=== PATIENT | female | born 1930 | race Caucasian/White ===

== ENCOUNTER 2017-03-12 07:21 | Day surgery (SDC) | payer MEDICARE, OTHER ==
[~2017-03-12 07:21] MED LIST: Acetaminophen TAB* 325 MG PO PRN; Buffered Lidocaine 1% SYRIN* 3 ML/SYR SYRINGE INTRADERM ONE
[2017-03-12] MEDS ORDERED: Midazolam* 1 MG/ML 5 ML VIAL (5 MG) ONE (07:35)
[2017-03-12 10:02] VITALS: BP 155/95
[2017-03-12] MEDS ORDERED: Phenylephrine 2.5% OPTH.SOL* 2 ML BTL ONE (13:39)
[2017-03-12] MEDS ORDERED: Lidocaine 1% MPF* 2 ML VIAL ONE (13:39)
[2017-03-12] MEDS ORDERED: acetaZOLAMIDE TAB* 250 MG ONE (13:39)
[2017-03-12] MEDS ORDERED: Povidone Iodine 5% OPTH* 30 ML BTL ONE (13:39)
[2017-03-12] MEDS ORDERED: Lidocaine 2% EPI 1:200000 MPF* 20 ML VIAL ONE (13:39)
[2017-03-12] MEDS ORDERED: Flurbiprofen 0.03% OPTH.SOL* 2.5 ML BTL ONE (13:39)
[2017-03-12] MEDS ORDERED: Cyclopentolate 1% OPTH.SOL* 2 ML BTL ONE (13:39)
[2017-03-12] MEDS ORDERED: Neomycin/Polymy/Dex OPTH.SUSP* MAXITROL 0.1% 5 ML ONE (13:39)
[2017-03-12] MEDS ORDERED: Proparacaine 0.5% OPHTH.SOL* 15 ML BTL ONE (13:39)
--- NOTE | 2017-03-12 23:38 | OP ---
DATE OF OPERATION: 03/12/17 - [facility] DATE OF : 32 SURGEON: Ricky Pryor M.D. PREOPERATIVE DIAGNOSIS: Cataract, left eye. POSTOPERATIVE DIAGNOSIS: Cataract, left eye. OPERATIVE PROCEDURE: Phacoemulsification, left eye with IOL. DESCRIPTION OF PROCEDURE: The patient was brought to the operating room after being given 1/2% Alcaine with epinephrine drops in the preoperative area. The eye was prepped and draped in the usual sterile fashion. Sterile drape and eyelid speculum were placed. Again, topical 1/2% Alcaine with epinephrine was given. A paracentesis incision was made at the 3 o'clock position with the No.75 blade. Clear cornea incision 2.2 x 2.2-mm was created at the 6 o'clock position starting at the anterior limbus using the 2.2-mm keratome. The anterior chamber was irrigated with 0.4 mL of 1% non-preservative intracameral lidocaine and filled with DisCoVisc. A capsulorrhexis was completed using the cystotome and the Utrata forceps. Hydrodissection was performed with balanced salt solution. The lens nucleus was removed with the Phacoemulsification handpiece without incident. Cortex was removed with the irrigation-aspiration handpiece. The capsular bag was re-inflated using DisCoVisc and an [id number] implant was inserted with the shooter. The irrigation-aspiration handpiece was used to remove all residual DisCoVisc. The eye was refilled with balanced salt solution and the wound checked and found to be watertight. Topical Maxitrol drops were given. [id number]/[facility] #: [id number] [facility]
== END 2017-03-12 10:13 | disposition home or self-care (01) ==
LOC: OREAST 07:21
PROVIDERS: ATTEND Specialist
DX: H25.812 Combined forms of age-related cataract, left eye (principal); H35.3132 Nonexudative age-related macular degeneration, bilateral, intermediate dry stage; G20 Parkinson's disease
CPT/HCPCS: A9270-GY; J2250; V2632

== ENCOUNTER 2020-05-12 09:00 | Inpatient (IN) ==
[2020-05-12] MEDS ORDERED: Al Hydrox/Mg Hydrox/Simet LIQ 30 ML UDC PO PRN (11:53)
[2020-05-12] MEDS: Enoxaparin 30 MG/0.3 ML SYR(*) SUBCUT SCH (13:54)
[2020-05-12] MEDS: Carbidopa/Levodop 10/100 MG TAB(*) PO SCH ×2 (13:54→22:01)
[2020-05-13] MEDS: Carbidopa/Levodop 10/100 MG TAB(*) PO SCH ×3 (08:16→20:21)
[2020-05-13 08:39] LABS: ABS Eosinophils 0.1 10^3/ul (0-0.6); ABS Lymphocytes 0.9 10^3/ul (1.0-4.8); ABS Monocytes 0.4 10^3/ul (0-0.8); Eosinophil % 2.5 %; Hematocrit 41 % (35-47); Hemoglobin 13.6 g/dL (12.0-16.0); Lymphocyte % 17.2 %; Mean Corpuscular HGB Conc 34 g/dL (31-36); Mean Corpuscular Hemoglobin 31 pg (27-31); Mean Corpuscular Volume 92 fL (80-97); Mean Platelet Volume 9.1 fL (7.4-10.4); Nucleated Red Blood Cells % 0.1; Platelet Count 199 10^3/uL (150-450); Red Blood Count 4.42 10^6 /uL (3.70-4.87); Red Cell Distribution Width 13 % (10-15)
[2020-05-13] MEDS: Lidocaine PATCH 5% PATCH TRANSDERM SCH (09:01)
[2020-05-13 09:13] LABS: Albumin 3.6 g/dL (3.2-5.2); Albumin/Globulin Ratio 1.1 (1-3); BUN/Creatinine Ratio 15.4 (8-20); Calcium 9.2 mg/dL (8.6-10.3); EGFR African American 49.9 (>60); EGFR Non-African American 41.2 (>60); Globulin 3.3 g/dL (2-4); Potassium 4.1 mmol/L (3.5-5.0); Total Bilirubin 0.6 mg/dL (0.2-1.0); Total Protein 6.9 g/dL (6.4-8.9)
[2020-05-13] MEDS ORDERED: Mineral Oil ENEMA 118 ML/BOTTLE BOTTLE PR PRN (09:52)
[2020-05-13] MEDS ORDERED: Sodium Phosphate ADULT ENEMA 133 ML BTL PR PRN (09:52)
[2020-05-13] MEDS: Enoxaparin 30 MG/0.3 ML SYR(*) SUBCUT SCH (12:56)
[2020-05-13] MEDS: Magnesium Hydroxide LIQ 30 ML UDC PO PRN (19:14)
[2020-05-13] MEDS: Lidocaine Patch REMOVE PATCH PATCH OFF SCH (21:45)
[2020-05-14] MEDS: Lidocaine PATCH 5% PATCH TRANSDERM SCH (09:23)
[2020-05-14] MEDS: Carbidopa/Levodop 10/100 MG TAB(*) PO SCH ×3 (09:23→20:02)
[2020-05-14] MEDS: Polyethylene Glycol 3350 17 GM PACKET PO SCH (09:23)
[2020-05-14] MEDS: Magnesium Hydroxide LIQ 30 ML UDC PO PRN (09:27)
[2020-05-14] MEDS: Enoxaparin 30 MG/0.3 ML SYR(*) SUBCUT SCH (13:42)
[2020-05-14] MEDS: Senna TAB 8.6 mg TAB PO PRN (20:02)
[2020-05-14] MEDS: Lidocaine Patch REMOVE PATCH PATCH OFF SCH (20:44)
[2020-05-15] MEDS: Polyethylene Glycol 3350 17 GM PACKET PO SCH (08:06)
[2020-05-15] MEDS: Carbidopa/Levodop 10/100 MG TAB(*) PO SCH ×3 (08:06→20:40)
[2020-05-15] MEDS: Lidocaine PATCH 5% PATCH TRANSDERM SCH (08:23)
[2020-05-15] MEDS: Enoxaparin 30 MG/0.3 ML SYR(*) SUBCUT SCH (12:37)
[2020-05-15] MEDS: Lidocaine Patch REMOVE PATCH PATCH OFF SCH (20:41)
[2020-05-16] MEDS: Carbidopa/Levodop 10/100 MG TAB(*) PO SCH ×3 (11:20→20:06)
[2020-05-16] MEDS: Lidocaine PATCH 5% PATCH TRANSDERM SCH (11:20)
[2020-05-16] MEDS: Polyethylene Glycol 3350 17 GM PACKET PO SCH (11:20)
[2020-05-16] MEDS: Enoxaparin 30 MG/0.3 ML SYR(*) SUBCUT SCH (11:21)
[2020-05-16] MEDS: Lidocaine Patch REMOVE PATCH PATCH OFF SCH (20:05)
[2020-05-17 05:48] LABS: ABS Eosinophils 0.1 10^3/ul (0-0.6); ABS Monocytes 0.6 10^3/ul (0-0.8); Eosinophil % 1.4 %; Hematocrit 40 % (35-47); Hemoglobin 13.6 g/dL (12.0-16.0); Lymphocyte % 15.2 %; Mean Corpuscular HGB Conc 34 g/dL (31-36); Mean Corpuscular Hemoglobin 31 pg (27-31); Mean Corpuscular Volume 92 fL (80-97); Mean Platelet Volume 8.5 fL (7.4-10.4); Nucleated Red Blood Cells % 0.1; Platelet Count 238 10^3/uL (150-450); Red Blood Count 4.39 10^6 /uL (3.70-4.87); Red Cell Distribution Width 13 % (10-15); White Blood Count 6.5 10^3/uL (3.5-10.8)
[2020-05-17 08:24] LABS: Albumin 3.6 g/dL (3.2-5.2); Calcium 8.8 mg/dL (8.6-10.3); Potassium 4.5 mmol/L (3.5-5.0); Total Bilirubin 0.4 mg/dL (0.2-1.0)
[2020-05-17 08:30] LABS: Albumin/Globulin Ratio 1.2 (1-3); BUN/Creatinine Ratio 17.8 (8-20); EGFR African American 44.8 (>60); Total Protein 6.6 g/dL (6.4-8.9)
[2020-05-17] MEDS: Polyethylene Glycol 3350 17 GM PACKET PO SCH (08:55)
[2020-05-17] MEDS: Carbidopa/Levodop 10/100 MG TAB(*) PO SCH ×3 (08:55→20:00)
[2020-05-17] MEDS: Lidocaine PATCH 5% PATCH TRANSDERM SCH (08:55)
[2020-05-17] MEDS: Enoxaparin 30 MG/0.3 ML SYR(*) SUBCUT SCH (13:36)
[2020-05-17] MEDS: Lidocaine Patch REMOVE PATCH PATCH OFF SCH (21:17)
[2020-05-18] MEDS: Lidocaine PATCH 5% PATCH TRANSDERM SCH (07:36)
[2020-05-18] MEDS: Polyethylene Glycol 3350 17 GM PACKET PO SCH (07:37)
[2020-05-18] MEDS: Carbidopa/Levodop 10/100 MG TAB(*) PO SCH ×3 (07:37→20:54)
[2020-05-18] MEDS: Enoxaparin 30 MG/0.3 ML SYR(*) SUBCUT SCH (13:06)
[2020-05-18] MEDS: Lidocaine Patch REMOVE PATCH PATCH OFF SCH (21:01)
[2020-05-19] MEDS: Lidocaine PATCH 5% PATCH TRANSDERM SCH (10:09)
[2020-05-19] MEDS: Carbidopa/Levodop 10/100 MG TAB(*) PO SCH ×3 (10:09→21:12)
[2020-05-19] MEDS: Polyethylene Glycol 3350 17 GM PACKET PO SCH (10:09)
[2020-05-19] MEDS: Enoxaparin 30 MG/0.3 ML SYR(*) SUBCUT SCH (11:45)
[2020-05-19] MEDS ORDERED: LORazepam 0.5 mg TAB (*) PO PRN (19:23)
[2020-05-19] MEDS: Lidocaine Patch REMOVE PATCH PATCH OFF SCH (21:15)
[2020-05-20] MEDS: Enoxaparin 30 MG/0.3 ML SYR(*) SUBCUT SCH (01:24)
[2020-05-20] MEDS: Lidocaine PATCH 5% PATCH TRANSDERM SCH (08:54)
[2020-05-20] MEDS: Carbidopa/Levodop 10/100 MG TAB(*) PO SCH ×3 (08:54→21:06)
[2020-05-20] MEDS: Polyethylene Glycol 3350 17 GM PACKET PO SCH (08:54)
[2020-05-20] MEDS: Lidocaine Patch REMOVE PATCH PATCH OFF SCH (21:45)
[2020-05-21] MEDS: Carbidopa/Levodop 10/100 MG TAB(*) PO SCH ×3 (08:21→21:29)
[2020-05-21] MEDS: Polyethylene Glycol 3350 17 GM PACKET PO SCH (08:22)
[2020-05-21] MEDS: Lidocaine PATCH 5% PATCH TRANSDERM SCH (08:22)
[2020-05-21] MEDS: Enoxaparin 30 MG/0.3 ML SYR(*) SUBCUT SCH (12:39)
[2020-05-21] MEDS: Lidocaine Patch REMOVE PATCH PATCH OFF SCH (21:29)
[2020-05-22] MEDS: Lidocaine PATCH 5% PATCH TRANSDERM SCH (08:37)
[2020-05-22] MEDS: Carbidopa/Levodop 10/100 MG TAB(*) PO SCH ×3 (08:37→20:47)
[2020-05-22] MEDS: Polyethylene Glycol 3350 17 GM PACKET PO SCH (08:38)
[2020-05-22] MEDS: Enoxaparin 30 MG/0.3 ML SYR(*) SUBCUT SCH (12:45)
[2020-05-22] MEDS: Senna TAB 8.6 mg TAB PO PRN (20:47)
[2020-05-22] MEDS: Lidocaine Patch REMOVE PATCH PATCH OFF SCH (20:55)
[2020-05-23] MEDS: Carbidopa/Levodop 10/100 MG TAB(*) PO SCH ×3 (09:16→20:12)
[2020-05-23] MEDS: Polyethylene Glycol 3350 17 GM PACKET PO SCH (09:16)
[2020-05-23] MEDS: Lidocaine PATCH 5% PATCH TRANSDERM SCH (09:17)
[2020-05-23] MEDS: Enoxaparin 30 MG/0.3 ML SYR(*) SUBCUT SCH (12:11)
[2020-05-23] MEDS: Senna TAB 8.6 mg TAB PO PRN (20:13)
[2020-05-23] MEDS: Lidocaine Patch REMOVE PATCH PATCH OFF SCH (20:17)
[2020-05-24 07:07] LABS: ABS Eosinophils 0.1 10^3/ul (0-0.6); ABS Lymphocytes 1.2 10^3/ul (1.0-4.8); ABS Monocytes 0.6 10^3/ul (0-0.8); Eosinophil % 1.4 %; Hematocrit 39 % (35-47); Hemoglobin 13.4 g/dL (12.0-16.0); Lymphocyte % 23.4 %; Mean Corpuscular HGB Conc 34 g/dL (31-36); Mean Corpuscular Hemoglobin 32 pg (27-31); Mean Corpuscular Volume 93 fL (80-97); Mean Platelet Volume 8.7 fL (7.4-10.4); Nucleated Red Blood Cells % 0.2; Platelet Count 262 10^3/uL (150-450); Red Blood Count 4.24 10^6 /uL (3.70-4.87); Red Cell Distribution Width 13 % (10-15); White Blood Count 5.2 10^3/uL (3.5-10.8)
[2020-05-24 07:33] LABS: Albumin 3.6 g/dL (3.2-5.2); Albumin/Globulin Ratio 1.2 (1-3); BUN/Creatinine Ratio 18.8 (8-20); Calcium 8.9 mg/dL (8.6-10.3); EGFR African American 47.6 (>60); EGFR Non-African American 39.4 (>60); Globulin 2.9 g/dL (2-4); Potassium 4.2 mmol/L (3.5-5.0); Total Bilirubin 0.4 mg/dL (0.2-1.0); Total Protein 6.5 g/dL (6.4-8.9)
[2020-05-24] MEDS: Polyethylene Glycol 3350 17 GM PACKET PO SCH (09:11)
[2020-05-24] MEDS: Lidocaine PATCH 5% PATCH TRANSDERM SCH (09:11)
[2020-05-24] MEDS: Carbidopa/Levodop 10/100 MG TAB(*) PO SCH ×3 (09:11→20:24)
[2020-05-24] MEDS: Enoxaparin 30 MG/0.3 ML SYR(*) SUBCUT SCH (14:22)
[2020-05-24] MEDS: Lidocaine Patch REMOVE PATCH PATCH OFF SCH (20:28)
[2020-05-25 05:45] VITALS: BP 131/61
[2020-05-25] MEDS: Carbidopa/Levodop 10/100 MG TAB(*) PO SCH (10:10)
[2020-05-25] MEDS: Polyethylene Glycol 3350 17 GM PACKET PO SCH (10:11)
[2020-05-25] MEDS: Lidocaine PATCH 5% PATCH TRANSDERM SCH (10:11)
[2020-05-25] MEDS: Enoxaparin 30 MG/0.3 ML SYR(*) SUBCUT SCH (12:34)
== END 2020-05-25 13:30 | DRG 57 ==
LOC: PMRU 10:39
PROVIDERS: ADMIT Physical Medicine & Rehabilitation; ATTEND Physical Medicine & Rehabilitation